=== PATIENT | female | born 1970 | race Caucasian/White ===

== ENCOUNTER → 2019-09-08 08:03 | Outpatient (CLI) | payer BC, SELFPAY ==
--- NOTE | ~2019-09-08 | MM_ITS ---
EXAMINATION: MM screening tania BI w luis angel HISTORY: Screening mammogram TECHNIQUE: Craniocaudal and mediolateral oblique 3-D tomosynthesis images were obtained and synthetic 2-D images were generated. CAD analysis was submitted and interpreted. COMPARISON: 12/17/2014 [facility] bilateral digital screening mammogram [facility] bilateral digital screening mammogram BREAST PARENCHYMAL COMPOSITION: The breasts are almost entirely fatty. FINDINGS: Stable benign intramammary lymph node is noted in the upper outer quadrant of the left [address]. There is no evidence of suspicious mass, calcification, or architectural distortion to suggest ma lignancy in either breast. There has been no suspicious interval change. IMPRESSION: 1. No mammographic evidence of malignancy. 2. Recommend routine screening mammography in one year. BI-RADS Category 2: Benign finding(s). Reviewed, dictated and finalized at location A. NCE LEAD
== END ==
PROVIDERS: PCP Internal Medicine; Visit Provider Nurse Practitioner
DX: Z12.31 Encounter for screening mammogram for malignant neoplasm of breast (principal)
CPT/HCPCS: 77063; 77067

== ENCOUNTER → 2021-12-08 14:58 | Outpatient (CLI) | payer BC, SELFPAY ==
--- NOTE | ~2021-12-08 | MM_ITS ---
EXAMINATION: MM screening tania BI w luis angel HISTORY: Screening mammogram TECHNIQUE: Craniocaudal and mediolateral oblique 3-D tomosynthesis images were obtained and synthetic 2-D images were generated. CAD analysis was submitted and interpreted. COMPARISON: No prior mammogram is available for comparison at this institution. BREAST PARENCHYMAL COMPOSITION: The breasts are almost entirely fatty. FINDINGS: There is no evidence of suspicious mass, calcification, or architectural distortion to sugg est malignancy in either breast. There has been no suspicious interval change. IMPRESSION: 1. No mammographic evidence of malignancy. 2. Recommend routine screening mammography in one year. BI-RADS Category 1: Negative Reviewed, dictated and finalized at location A.
== END ==
PROVIDERS: PCP Internal Medicine; Visit Provider Nurse Practitioner
DX: Z12.31 Encounter for screening mammogram for malignant neoplasm of breast (principal)
CPT/HCPCS: 77063; 77067

== ENCOUNTER → 2021-12-21 07:51 | Outpatient (CLI) | payer BC, SELFPAY ==
--- NOTE | ~2021-12-21 | MMUS_ITS ---
EXAMINATION: MM diagnostic tania LT w luis angel, US breast LT limited HISTORY: Palpable left breast abnormality TECHNIQUE: Additional 3-D tomosynthesis images of the left breast were performed and synthetic 2-D im ages were generated. CAD analysis was submitted and interpreted. High resolution Limited left breast ultrasound was performed. COMPARISON: Comparison to multiple prior studies sequentially, with oldest reviewed study dated 03/2015 . BREAST PARENCHYMAL COMPOSITION: Breast composed of scattered areas of fibroglandular density FINDINGS: MAMMOGRAPHIC FINDINGS: There are no suspicious masses, calcifications or architectural distortion in the left breast to sugg est malignancy. ULTRASOUND: Limited left breast ultrasound: In the area of palpable concern at 10:00, 8.5 cm from the nipple ther e is a 3 mm cyst. No suspicious masses to suggest malignancy. IMPRESSION: 1. No evidence for malignancy in the left breast. Benign 3 mm cyst present in the area of palpable co ncern. 2. Routine yearly screening mammogram and regular clinical breast examination are recommended. BI-RADS Category 2: Benign finding(s). Reviewed, dictated and finalized at location A. IMPRESSION: 1. No evidence for malignancy in the left breast. Benign 3 mm cyst present in t he area of palpable concern. 2. Routine yearly screening mammogram and regular clinical breast examination a re recommended. BI-RADS Category 2: Benign finding(s).
== END ==
PROVIDERS: PCP Internal Medicine; Visit Provider Nurse Practitioner
DX: N63.22 Unspecified lump in the left breast, upper inner quadrant (principal); N60.02 Solitary cyst of left breast
CPT/HCPCS: 76642; 77061; 77065; G0279